=== PATIENT | male | born 1935 | race Caucasian/White ===

== ENCOUNTER 2019-02-15 20:57 | Emergency (ER) | payer MEDICARE, BC ==
[~2019-02-15] VITALS: Ht 172.7 cm; Wt 61.2 kg
[2019-02-15] MEDS ORDERED: LIPITOR10 MG (21:05)
[2019-02-15] MEDS ORDERED: IMDUR 60 MG TAB60 M1 (21:06)
[2019-02-15] MEDS ORDERED: CARVEDILOL12.5 MG (21:06)
[2019-02-15] MEDS ORDERED: IRON325 (21:06)
[2019-02-15] MEDS ORDERED: DEMADEX20 MG (21:07)
[2019-02-15] MEDS ORDERED: POTASSIUM20 (21:07)
[2019-02-15] MEDS ORDERED: ECOTRIN325 MG (21:08)
[2019-02-15] MEDS ORDERED: NORVASC5 MG (21:08)
[2019-02-15] MEDS ORDERED: SPIRONOLACTONE25 M1 (21:08)
[2019-02-15] MEDS ORDERED: HYDROXYCHLOROQ200 M1 (21:09)
[2019-02-15] MEDS ORDERED: ARAVA20 MG (21:09)
[2019-02-15] MEDS ORDERED: ELIQUIS5 MG (21:09)
[2019-02-15] MEDS ORDERED: PREDNISONE 5 MG5 M1 (21:10)
[2019-02-15] MEDS ORDERED: KINERET100 MG/0.6 (21:10)
[2019-02-15] MEDS ORDERED: ALENDRONATE SOD70 MG (21:11)
[2019-02-15] MEDS ORDERED: SYNTHROID75 MCG (21:11)
[2019-02-15] MEDS ORDERED: TRAMADOL 50 MG50 MG (21:11)
[2019-02-15] MEDS ORDERED: sulfasalazine (21:14)
[2019-02-15 21:20] LABS: ABSOLUTE LYMPHOCYTES 0.7 thou/uL (0.8-5.3); ABSOLUTE MONOCYTES 0.3 thou/uL (0.0-1.2); ABSOLUTE NEUTROPHILS 3.7 thou/uL (1.6-8.1); BASOPHILS 0.7 %; EOSINOPHILS 0.3 %; HEMATOCRIT 31.6 % (42.0-52.0); HEMOGLOBIN 10.5 gm/dL (14.0-18.0); MCH 33.4 pg (26.0-34.0); MCHC 33.3 g/dL (28.0-37.0); MCV 100.4 fL (80.0-100.0); MONOCYTES 5.8 %; MPV 7.5 fl. (7.2-11.1); NUCLEATED RBCS 0 /100WBC; PLATELET COUNT* 177 thou/uL (150-400); POLYS 78.2 %; RBC 3.15 mil/uL (4.50-6.00); RDW-CV 16.4 % (10.5-14.5); WBC 4.7 thou/uL (4.0-11.0)
[2019-02-15 21:29] LABS: CALCIUM 7.8 mg/dL (8.5-10.1); CREATININE 1.8 mg/dL (0.6-1.3); POTASSIUM 4.6 mmol/L (3.5-5.1)
[2019-02-15 21:30] LABS: APTT 23.1 Seconds (25.0-31.3); PROTIME 10.2 Seconds (9.20-11.50)
[2019-02-15 21:40] LABS: MAGNESIUM 1.9 mg/dL (1.8-2.4); TOTAL BILIRUBIN 0.5 mg/dL (<0.1-1.0); TOTAL PROTEIN 5.8 g/dL (6.4-8.2); TROPONIN-I LEVEL 0.06 ng/mL (<0.06)
[2019-02-16 00:05] VITALS: BP 164/89
--- NOTE | 2019-02-16 14:49 | EKG ---
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1935 Requested By: Marko Marvin Order Number: [id number] MD: Julio Ware Measurements Intervals [place] Rate: 25 P: 218 [place]: QRS: -12 QRSD: 119 T: 104 QT: 618 QTc: 399 Interpretive Statements AV block, complete (third degree) Incomplete left bundle branch block Anterior Q waves, possibly due to LVH LVH w/ repol abnormalities, possible ischemia No previous ECG available for comparison Electronically Signed On 02-16-2019 14:49:11 CDT by Julio Ware [email or web address] <ELECTRONICALLY SIGNED> By: Julio Ware MD, [facility] 02/16/19 1449 58 58 Julio Ware MD, [facility] /EPI
--- NOTE | 2019-02-16 14:49 | EKG ---
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1935 Requested By: Marko Marvin Order Number: [id number] MD: Julio Ware Measurements Intervals [place] Rate: 80 P: 56 [place]: 163 QRS: 8 QRSD: 117 T: 144 QT: 441 QTc: 509 Interpretive Statements Sinus rhythm Incomplete left bundle branch block LVH with secondary repolarization abnormality Anterior ST elevation, probably due to LVH Prolonged QT interval No previous ECG available for comparison Electronically Signed On 02-16-2019 14:49:37 CDT by Julio Ware [email or web address] <ELECTRONICALLY SIGNED> By: Julio Ware MD, [facility] 02/16/19 1449 14 14 Julio Ware MD, [facility] /EPI
--- NOTE | 2019-02-16 14:50 | EKG ---
[place] [address] ELECTROCARDIOGRAM REPORT Name: SPENSER RAYMUNDO [facility] [id number] Admission: 02/15/19 Attend Phys: Discharge: 02/16/19 Date of : 37 Report #: [id number] THIS REPORT FOR: //name// 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
== END 2019-02-16 00:07 | disposition short-term general hospital (02) ==
LOC: M.ERS 20:57
PROVIDERS: Emergency Medicine
DX: R55 Syncope and collapse (principal); M25.521 Pain in right elbow; I25.10 Atherosclerotic heart disease of native coronary artery without angina pectoris; I10 Essential (primary) hypertension; M06.9 Rheumatoid arthritis, unspecified; Z95.818 Presence of other cardiac implants and grafts; Z79.899 Other long term (current) drug therapy; Z79.82 Long term (current) use of aspirin